=== PATIENT | male | born 1995 | race Caucasian/White ===

== ENCOUNTER 2017-06-30 12:00 | Day surgery (SDC) | payer OTHER ==
[~2017-06-30 12:00] MED LIST: Acetaminophen TAB* 325 MG PO ONE; Buffered Lidocaine 0.9% SYRIN* 5 ML/SYR SYRINGE INTRADERM ONE; Dexamethasone IV* 4 MG/ML 1 ML (4 MG) IV SLOW PU ONE; Famotidine IV* 10 MG/ML 2 ML (20 mg) IV ONE
[2017-06-30] MEDS ORDERED: Dexamethasone IV* 4 MG/ML 1 ML (4 MG) ONE (12:29)
[2017-06-30] MEDS ORDERED: Famotidine IV* 10 MG/ML 2 ML (20 mg) ONE (12:29)
[2017-06-30] MEDS ORDERED: Clindamycin 900 MG IVPREMIX(* 900 MG/50 ML SDV IV ONE (12:29)
[2017-06-30] MEDS ORDERED: Acetaminophen TAB* 325 MG ONE (12:29)
[2017-06-30] MEDS ORDERED: Bupivacaine 0.25% SDV* 30 ML ONE ×2 (14:51→14:58)
[2017-06-30] MEDS ORDERED: fentaNYL* 50 MCG/ML 2 ML VIAL (100 MCG VIAL) ONE ×2 (15:08→16:27)
[2017-06-30] MEDS ORDERED: Midazolam* 1 MG/ML 2 ML VIAL (2 MG) ONE ×2 (15:08→16:46)
[2017-06-30] MEDS ORDERED: Lidocaine 2% PF * 5 ML VIAL ONE (15:09)
[2017-06-30] MEDS ORDERED: Propofol* 10 MG/ML 20 ML BTL IV PUSH ONE ×2 (15:09→17:16)
[2017-06-30] MEDS ORDERED: Ibuprofen TAB* 600 MG ONE (18:25)
[2017-06-30 18:35] VITALS: BP 130/73
--- NOTE | 2017-07-01 04:01 | OP ---
DATE OF OPERATION: 06/30/17 - [facility] DATE OF : 89 SURGEON: Jermain Kimbrough MD HOSPITAL HOUSEKEEPER: LEN Owens ANESTHESIOLOGIST: Dr. Hoffman. ANESTHESIA: Local MAC. PRE-OP DIAGNOSIS: Right thumb radial collateral ligament avulsion fracture with instability of the radial collateral ligament. POST-OP DIAGNOSIS: Right thumb radial collateral ligament avulsion fracture with instability of the radial collateral ligament. OPERATIVE PROCEDURE: Excision of avulsion fracture fragment and repair of right thumb metacarpophalangeal joint radial collateral ligament. INDICATIONS: Manav had an unstable right thumb metacarpophalangeal joint after radial collateral ligament avulsion fracture. I had talked to him about his treatment options. The fracture fragment was displaced. I thought it was probably going to be unstable and have a nonunion as it was unstable in the office. He understood the risks and benefits. He understood the need for prolonged immobilization following the ligament repair. He agreed to proceed with surgery. ESTIMATED BLOOD LOSS: 2 mL. COMPLICATIONS: None. FINDINGS: As expected. DESCRIPTION OF PROCEDURE: Manav was seen in the preoperative holding area. The correct side, site, and procedure were identified. We came back to the operating room. He got some anesthesia in the operative area, was infiltrated with 0.25% plain Marcaine. The arm was then prepped and draped in the usual fashion. A time- out was performed. I began by exsanguinating the arm with the Esmarch and the tourniquet was inflated to 250 mmHg. A curvilinear incision was made over the right thumb metacarpophalangeal joint radial side. The dissection was carried down longitudinally. The full thickness flaps were raised off of the aponeurosis of the abductor. The tendon was split longitudinally. This put me down on to the radial collateral ligament. The avulsion fracture fragment was identified. It was mobilized. It was not wide enough to take a screw and so I went ahead and excised that. It did go quite a bit from dorsal to volar almost the entire length of the radial side of the proximal phalanx. However, it was just couple of millimeters long and taking the screw, therefore I excised it. I went ahead and placed 4 micro Mitek suture anchors in the foot print of the fracture bed. It went almost from the entirety from dorsal to volar. I then whipstitched the sutures into the end of the radial collateral ligament and tied these off opposing the ligament back down to the bone. This was all augmented with some 4-0 Ethibond sutures around the periphery. After this was done, the thumb was completely stable at 0 and 30 degrees of flexion. The split in the aponeurosis was repaired with 4-0 Ethibond suture. The skin was closed with 4-0 Monocryl suture and Steri-Strips. I had performed a digital block at the beginning of the procedure. The wound was dressed with 4-0, sterile Webril, and a thumb spica splint was applied out to the tip of the thumb with no pressure on that radial collateral ligament. Tourniquet was deflated. The hand pinked up immediately. He was taken to the recovery room in stable condition. [id number] #: [id number] MTDD
--- NOTE | 2017-07-01 15:50 | RAD ---
INDICATION: Right thumb surgery. COMPARISON: There are no prior studies available for comparison. TECHNIQUE: 32nd of intermittent fluoroscopic guidance were provided and 4 spot films of the right thumb were obtained in the operating room. FINDINGS: The films demonstrate placement of 3 surgical anchors at the lateral base of the proximal phalanx of the thumb. IMPRESSION: INTRAOPERATIVE CONTROL FILMS. CPT II Codes: 6045F
== END 2017-06-30 15:38 | disposition home or self-care (01) ==
LOC: OREAST 12:00
PROVIDERS: ATTEND Orthopaedic Surgery Hand Surgery
DX: S53.21XA Traumatic rupture of right radial collateral ligament, initial encounter (principal); W21.05XA Struck by basketball, initial encounter; Y93.67 Activity, basketball; Y92.310 Basketball court as the place of occurrence of the external cause; J45.909 Unspecified asthma, uncomplicated
CPT/HCPCS: 76000; A9270-GY; J1100; J2250; J2704; J3010